=== PATIENT | female | born 1940 | race Caucasian/White ===

== ENCOUNTER 2017-02-01 12:14 | Emergency (ER) | payer OTHER, MEDICARE ==
[2017-02-01 12:23] VITALS: TEMP 97.9
[2017-02-01] MEDS ORDERED: OXYCODONE/APAP 5/325 TAB ONE (13:15)
[2017-02-01] MEDS ORDERED: OXYCODONE/APAP 5/325 TAB PO ONE (13:22)
--- NOTE | 2017-02-01 13:41 | EDPHY ---
H & P Stated Complaint: Fell Monday,hit agianst washing machine;here to get checked out;L rib pain Time Seen by Provider: 02/01/17 12:29 HPI/ROS: CHIEF COMPLAINT: Rib pain HISTORY OF PRESENT ILLNESS: 76-year-old female presents emergency department complaining of posterior left-sided rib pain that is not improving. Patient tripped and fell and hit her left side on the washer and dryer in her laundry room. No head strike, no neck pain, no loss of consciousness. Patient reports the pain continues, is worse with movement, worse with a deep breath. Patient denies fevers, no cough. She reports the pain is not worsening though not improving. She denies abdominal pain, no difficulty urinating or hematuria. REVIEW OF SYSTEMS: A comprehensive 10 point review of systems is otherwise negative aside from elements mentioned in the history of present illness. Source: Patient Exam Limitations: No limitations - Personal History Current Tetanus Diphtheria and Acellular Pertussis (TDAP): Unsure Tetanus Vaccine Date: 2004 - Medical/Surgical History Hx Asthma: No Hx Chronic Respiratory Disease: No Hx Diabetes: No Hx Cardiac Disease: No Hx Renal Disease: No Hx Cirrhosis: No Hx Alcoholism: No Hx HIV/AIDS: No Hx Splenectomy or Spleen Trauma: No Other PMH: CHOLECSYTECTOMY, APPY, C SECTION X 3, FRACTURE T 7, and 11 OR 12, FIBROMYALGIA, OSTEOPOROSIS,HTN, parkinsons. chronic pain - Social History Smoking Status: Former smoker - Physical Exam Exam: Physical Exam Gen: Alert and Oriented, NAD HEENT: PERRL, moist mucous membranes NECK: no meningismus CV: regular rate and systolic murmur PULM: CTAB, no wheezes ABDOMEN: soft, non tender to palpation, BS present BACK: Left sided pin point posterior chest wall ttp. No swelling or ecchymosis. No CVA tenderness NEURO: Neurologically grossly intact EXTREMITIES: normal appearing SKIN: no rash or break in skin on exposed skin PSYCH: answers questions appropriately. Constitutional: Initial Vital Signs Temperature (C) 36.6 C 02/01/17 12:15 Heart Rate 76 02/01/17 12:15 Respiratory Rate 20 02/01/17 12:15 Blood Pressure 190/108 H 02/01/17 12:15 O2 Sat (%) 94 02/01/17 12:15 O2 Delivery Mode Nasal Cannula O2 (L/minute) 5 Allergies/Adverse Reactions: NSAIDS (Non-Steroidal Anti-Inflamma Allergy (Severe, Verified 02/01/17 12:15) Other-Enter Comments duloxetine HCl [From Cymbalta] Allergy (Mild, Verified 02/01/17 12:15) muscle weakness pregabalin [From Lyrica] Allergy (Mild, Verified 02/01/17 12:15) muscle weakness codeine [Codeine] Allergy (Verified 02/01/17 12:15) pseudoephedrine HCl [From Sudafed] Allergy (Verified 02/01/17 12:15) statins Allergy (Mild, Uncoded 01/21/16 12:43) muscle weakness Home Medications: Medication Instructions Recorded Carbidopa/Levodopa 25/100Mg 2 tab PO QID 08/03/14 [Sinemet 25/100 MG (*)] Lisinopril [Zestril 10 mg (*)] 10 mg PO DAILY 08/03/14 buPROPion XL [Wellbutrin 150mg XL] 300 mg PO Q2D 08/03/14 oxyCODONE CR [Oxycontin] 20 mg PO BID 08/03/14 oxyCODONE IR [Oxycodone Ir (*)] 10 - 20 mg PO Q6 PRN 08/03/14 Medical Decision Making - Diagnostics Imaging Results: Imaging Impressions Ribs w/Chest X-Ray 02/01/17 12:58 Impression: 1. No acute fractures seen associated with the left ribs. There is suggestion of the old healed fracture posterior lateral left sixth rib. 2. No active cardiopulmonary disease seen. Imaging: Discussed imaging studies w/ call center recruiter Radiologist ED Course/Re-evaluation: 76-year-old female presents with left posterior rib pain after a mechanical trip and fall onto her washer and dryer at home 3 days ago. Rib series with PA chest shows no evidence of rib fracture, no pneumothorax. Patient is discharged with a incentive spirometer, she is instructed on how to use this prior to discharge.. She is given a Percocet in the emergency department. Patient has oxycodone from her airbrush painter at home. I have recommended ice or heat whichever feels better, oxycodone as prescribed by her doctor. She is given strict return precautions for any infectious symptoms, fevers, cough, new symptoms or concerns. Differential Diagnosis: Diagnosis considered but not limited to rib fracture, chest wall contusion, pneumothorax - Data Points Medications Given: Discontinued Medications Oxycodone/Acetaminophen (Percocet 5/325) 1 tab PO EDNOW ONE Stop: 02/01/17 13:23 Last Admin: 02/01/17 13:23 Dose: 1 tab Departure - Departure Disposition: Home, Routine, Self-Care Clinical Impression: Contusion, chest wall Qualifiers: Encounter type: initial encounter Laterality: left Qualified Code(s): S20.212A - Contusion of left front wall of thorax, initial encounter Condition: Good Instructions: How to Use an Incentive Spirometer (ED), Rib Fracture (ED), Contusion in Adults (ED) Additional Instructions: Ice or heat to your sore area, take your pain medication as prescribed by your primary care doctor. Use your incentive spirometer 10 times an hour while awake. Return to the emergency department for any fevers, cough, new symptoms or concerns. Follow up with your primary care doctor next week for re- evaluation. Referrals: Katheryn Johns MD [[facility] [place] [facility] [place]] - As per Instructions
[2017-02-01 14:23] VITALS: BP 163/98; PULSE 69; RESP 18; O2SAT 99
== END 2017-02-01 14:31 | disposition home or self-care (01) ==
DX: S20.212A Contusion of left front wall of thorax, initial encounter (principal); Z87.891 Personal history of nicotine dependence; W01.198A Fall on same level from slipping, tripping and stumbling with subsequent striking against other object, initial encounter; Y92.89 Other specified places as the place of occurrence of the external cause

== ENCOUNTER → 2017-04-27 | Outpatient (CLI) | payer OTHER, MEDICARE | LOC: BMCIMAGING 15:11 | PROVIDERS: ATTEND Podiatrist Foot & Ankle Surgery | DX: M81.0 Age-related osteoporosis without current pathological fracture (principal) ==

== ENCOUNTER 2018-03-04 18:10 | Inpatient (IN) | payer OTHER, MEDICARE ==
--- NOTE | 2018-03-04 18:27 | EDPHY ---
H & P Stated Complaint: fall, L hip pain - Personal History Current Tetanus/Diphtheria Vaccine: Unsure Current Tetanus Diphtheria and Acellular Pertussis (TDAP): Unsure Tetanus Vaccine Date: 2004 - Medical/Surgical History Hx Asthma: No Hx Chronic Respiratory Disease: No Hx Diabetes: No Hx Cardiac Disease: No Hx Renal Disease: No Hx Cirrhosis: No Hx Alcoholism: No Hx HIV/AIDS: No Hx Splenectomy or Spleen Trauma: No Other PMH: CHOLECSYTECTOMY, APPY, C SECTION X 3, FRACTURE T 7, and 11 OR 12, FIBROMYALGIA, OSTEOPOROSIS,HTN, parkinsons. chronic pain - Social History Smoking Status: Former smoker Time Seen by Provider: 03/04/18 18:24 HPI/ROS: CHIEF COMPLAINT: Left hip pain, right head injury post mechanical fall HISTORY OF PRESENT ILLNESS: 77-year-old female history of Parkinson's disease, no anticoagulant use history, history of chronic gait instability, chronically walks with a walker, arrives from [facility] via ambulance. She states that she got up from the dinner table without her walker and sustained a mechanical fall impacting the right side of her head and the left hip. No loss of consciousness. She is able to bear weight albeit with pain to the left hip and buttock area. This was a mechanical incident, not a syncopal episode. She has full recollection of all events. She denies: Nausea , vomiting, headache, midline C-spine pain, peripheral paresthesia, weakness, numbness, lumbar thoracic pain, straddle injury, syncopal episode PRIMARY CARE PROVIDER: Dr. Annabel Sampson REVIEW OF SYSTEMS: A ten point review of systems was performed and is negative with the exception of the items mentioned in the HPI PAST MEDICAL/SURGICAL HISTORY: no anticoagulant use, Parkinson's disease. Chronic gait instability secondary to Parkinson's disease, walks with a walker. Cholecystectomy. Appendectomy. Osteoporosis. Fibromyalgia. Chronic tremor SOCIAL HISTORY: denies alcohol use at time of incident. Lives at [facility] PHYSICAL EXAM 1) GENERAL: Well-developed, well-nourished, alert and oriented. Appears to be in no acute distress. Answering questions appropriately. Tremor noted. GCS 15. 2) HEAD: Normocephalic, small hematoma to the right frontal region. No ecchymosis. 3) HEENT: Pupils equal, round, reactive to light bilaterally. Negative Horners. Nasopharynx, oropharynx, clear. No deformity or angulation of nose. No septal hematoma. No rhinorrhea. No oral trauma. Ears bilaterally with normal tympanic membranes. No hemotympanum. No fluid or blood in the external auditory canal. No raccoon eyes. No Sanches sign. Teeth are normally aligned with no gross malocclusion, TMJ bilaterally nontender, facial bones nontender including the zygomatic arch, maxilla mandible. 4) NECK: No cervical collar is on. Posterior cervical spine is nontender, no stepoff, no effusion. Full range of motion which does not elicit any midline cervical spine pain, no posterior midline tenderness, no step-off. 5) LUNGS: Clear to auscultation bilaterally, no wheezes, no rhonchi, no retractions. No obvious signs of trauma. No chest wall pain. No flaring, no grunting. Moving symmetrically. No crepitus. 6) HEART: [Regular rate and rhythm, 7) ABDOMEN: No guarding, no rebound, no focal tenderness, no peritoneal signs, no signs of trauma, no ecchymosis 8) MUSCULOSKELETAL: Left lower extremity: No shortening no malrotation. Tender to palpation left greater trochanteric region left posterior buttock. No visible trauma such as ecchymosis, abrasion, erythema. No crepitus. Distal DP PT pulses present and brisk. Remainder of femur, knee, tibia fibula foot and ankle are nontender. Right lower extremity: Nontender no trauma no hip pain. No acetabular pain. Upper extremities unremarkable, moving upper extremities with no focal areas of discomfort. 9) BACK: No midline vertebral tenderness, no fluctuance, no step-off, no obvious trauma, no visual or palpable abnormality. 10) SKIN: No laceration. No abrasion DIFFERENTIAL DIAGNOSIS: Not necessarily in any particular order, my differential diagnosis includes, but is not limited to, concussion, skull fracture, intraparenchymal contusion, subarachnoid, subdural and epidural hematoma. The patient understands that this diagnosis is provisional and can never be 100% accurate. (Braydon,Jena Cline) Constitutional: Initial Vital Signs Temperature (C) 36.7 C 03/04/18 18:19 Heart Rate 68 03/04/18 18:19 Respiratory Rate 18 03/04/18 18:19 Blood Pressure 143/92 H 03/04/18 18:19 O2 Sat (%) 84 L 03/04/18 18:19 O2 Delivery Mode Room Air O2 (L/minute) 95 Allergies/Adverse Reactions: NSAIDS (Non-Steroidal Anti-Inflamma Allergy (Severe, Unverified 03/04/18 18:19) Other-Enter Comments duloxetine HCl [From Cymbalta] Allergy (Mild, Verified 03/04/18 18:19) muscle weakness pregabalin [From Lyrica] Allergy (Mild, Verified 03/04/18 18:19) muscle weakness codeine [Codeine] Allergy (Verified 03/04/18 18:19) pseudoephedrine HCl [From Sudafed] Allergy (Verified 03/04/18 18:19) statins Allergy (Mild, Uncoded 01/21/16 12:43) muscle weakness Home Medications: Medication Instructions Recorded Acetaminophen [Tylenol ES 500 mg 500 - 1,000 mg PO Q4 PRN 03/04/18 (*)] Carbidopa/Levodopa 1.5 each PO QID 03/04/18 [Carbidopa-Levodopa 25-100 Tab] Citalopram Hydrobromide 10 mg PO DAILY 03/04/18 [Citalopram HBr] Donepezil HCl [Aricept 5 MG (*)] 10 mg PO HS 03/04/18 Melatonin [Melatonin 5 mg] 5 mg PO HS PRN 03/04/18 Ondansetron Odt [Zofran Odt 4 mg 4 mg PO TID PRN 03/04/18 (*)] Oxybutynin Chloride [Oxybutynin 5 mg PO DAILY 03/04/18 Chloride Er] Ranitidine HCl [Zantac] 150 mg PO HS 03/04/18 Urea/Alpha Hydroxy Acids 1 julio TP DAILY 03/04/18 [ATRAC-TAIN CREAM] buPROPion XL [Wellbutrin Xl] 300 mg PO DAILY 03/04/18 guaiFENesin [Mucinex 600 MG (*)] 600 mg PO Q12 PRN 03/04/18 oxyCODONE CR [Oxycontin] 20 mg PO BID 03/04/18 oxyCODONE IR [Oxycodone Ir (*)] 10 mg PO Q4 PRN 03/04/18 Medical Decision Making - Diagnostics Imaging Results: Imaging Impressions Head CT 03/04/18 18:23 Impression: Atrophy and white matter disease, without acute abnormality. Results called to Yifan Bryson PA-C, at 7:00 PM at the time of the interpretation. Hip X-Ray 03/04/18 18:23 Impression: Negative radiographs of the left hip. Pelvis CT 03/04/18 18:46 Impression: 1. Negative for acute left hip or proximal femoral fracture. 2. Diffuse underlying osteopenia. 3. Healed inferior pubic ramus fracture on the right. 4. L5-S1 degenerative disk disease. 5. Atherosclerosis. Results called to Yifan Bryson PA-C at 7:15 p.m. Images reviewed myself (Jena Bryson) ED Course/Re-evaluation: The patient was evaluated and managed by the physician's pharmacy affairs assistant. My cosignature indicates that I reviewed the chart and I agree with the findings and plan of care as documented. I am the secondary supervising physician. ( Kay Clark) 6:27 p.m.: Head CT ordered in this patient for trauma for the following indication: Greater than 65 years old. Care of patient under supervision of secondary supervising physician Dr Clark . 7:15 p.m.: All the patient's imaging studies are negative for posttraumatic sequelae. Plan will be test ambulation with walker. 7:45 p.m.: Re-evaluation after patient attempted to sit up however she was unable to do so secondary to bilateral hip pain. She requests analgesia. History of chronic opiate dependence. She will be given IV medication re- evaluated. She would like to be discharged home 8:22 p.m.: Re-evaluation after patient given IV morphine. She is in a significant amount of pain. We attempted to sit her up and she is unable to do so secondary to bilateral hip pain. I re-examined her there are no visible or palpable abnormalities. No midline lumbar pain. I do not think this patient is an appropriate candidate for discharge home as I, her son and the patient all agree that she is unable to care for her self at this time 8:23 p.m.: Consultation with Dr. Marialuisa Paul who will admit patient (Jena Bryson) - Data Points Laboratory Results: Laboratory Results 03/04/18 19:58 05/20/18 19:58 03/04/18 03/04/18 19:58 19:58 WBC 11.77 10^3/uL H 10^3/uL (3.80-9.50) RBC 4.77 10^6/uL 10^6/uL (4.18-5.33) Hgb 14.4 g/dL g/dL (12.6-16.3) Hct 44.0 % % (38.0-47.0) MCV 92.2 fL fL (81.5-99.8) MCH 30.2 pg pg (27.9-34.1) MCHC 32.7 g/dL g/dL (32.4-36.7) RDW 13.4 % % (11.5-15.2) Plt Count 177 10^3/uL 10^3/uL (150-400) MPV 10.2 fL fL (8.7-11.7) Neut % (Auto) 71.9 % % (39.3-74.2) Lymph % (Auto) 19.5 % % (15.0-45.0) [place] % (Auto) 6.5 % % (4.5-13.0) Eos % (Auto) 1.3 % % (0.6-7.6) Baso % (Auto) 0.3 % % (0.3-1.7) Nucleat RBC Rel Count 0.0 % % (0.0-0.2) Absolute Neuts (auto) 8.48 10^3/uL H 10^3/uL (1.70-6.50) Absolute Lymphs (auto) 2.29 10^3/uL 10^3/uL (1.00-3.00) Absolute Monos (auto) 0.76 10^3/uL 10^3/uL (0.30-0.80) Absolute Eos (auto) 0.15 10^3/uL 10^3/uL (0.03-0.40) Absolute Basos (auto) 0.03 10^3/uL 10^3/uL (0.02-0.10) Absolute Nucleated RBC 0.00 10^3/uL 10^3/uL (0-0.01) Immature Gran % 0.5 % % (0.0-1.1) Immature Gran # 0.06 10^3/uL 10^3/uL (0.00-0.10) Sodium 139 mEq/L mEq/L (135-145) Potassium 5.0 mEq/L mEq/L (3.3-5.0) Chloride 103 mEq/L mEq/L (97-110) Carbon Dioxide 26 mEq/l mEq/l (22-31) Anion Gap 10 mEq/L mEq/L (8-16) BUN 25 mg/dL H mg/dL (7-23) Creatinine 1.0 mg/dL mg/dL (0.6-1.0) Estimated GFR 54 Glucose 78 mg/dL mg/dL (70-100) Calcium 8.7 mg/dL mg/dL (8.5-10.4) Medications Given: Discontinued Medications Cyclobenzaprine HCl (Flexeril) 10 mg PO EDNOW ONE Stop: 03/04/18 20:34 Last Admin: 03/04/18 20:54 Dose: 10 mg Fentanyl (Sublimaze) 50 mcg IVP EDNOW ONE Stop: 03/04/18 21:21 Last Admin: 03/04/18 21:24 Dose: 50 mcg Sodium Chloride (Ns) 500 mls @ 0 mls/hr IV ONCE ONE PRN Reason: Wide Open Stop: 03/04/18 20:33 Last Admin: 03/04/18 20:55 Dose: 500 mls Morphine Sulfate (Morphine) 4 mg IVP EDNOW ONE Stop: 03/04/18 19:49 Last Admin: 03/04/18 20:02 Dose: 4 mg Departure - Departure Disposition: [facility] Inpatient Acute Clinical Impression: Intractable hip pain, History of Parkinson's disease Condition: Fair
[2018-03-04 20:31] LABS: PLATELET COUNT 177 10^3/uL (150-400)
[2018-03-04] MEDS ORDERED: NS 500 ML IV ONE (20:32)
[2018-03-04] MEDS ORDERED: CYCLOBENZAPRINE 10 MG TAB PO ONE (20:33)
[2018-03-04] MEDS ORDERED: fentaNYL 100 MCG/2 ML INJ IVP ONE (21:20)
[2018-03-04] MEDS ORDERED: fentaNYL 100 MCG/2 ML INJ ONE (21:21)
[2018-03-04] MEDS ORDERED: ONDANSETRON 4 MG/2 ML VIAL IVP PRN (22:05)
[2018-03-04] MEDS ORDERED: ONDANSETRON DISINTEGRATING 4 MG TAB PO PRN ×2 (22:05→22:06)
[2018-03-04] MEDS ORDERED: ACETAMINOPHEN 325 MG TAB PO PRN (22:05)
[2018-03-04] MEDS ORDERED: guaiFENesin 600 MG TAB.ER PO PRN (22:06)
[2018-03-04] MEDS ORDERED: ACETAMINOPHEN 500 MG TAB PO PRN (22:06)
[2018-03-04] MEDS ORDERED: fentaNYL 100 MCG/2 ML INJ IVP PRN (22:08)
--- NOTE | 2018-03-04 22:30 | GHP ---
[f rep st] HISTORY AND PHYSICAL DATE OF ADMISSION: 03/04/2018 CHIEF COMPLAINT: Fall. HISTORY OF PRESENT ILLNESS: This is a 77-year-old female with a history of Parkinson's disease. Her balance has been off since her diagnosis, and she has fallen multiple times in the past. Today she was walking down a walkway and fell onto her left side and also on her right side. She believes that this was due to poor balance. This was not a syncopal episode. She developed pain in the left hip and came here for evaluation. She does not have any fractures but had continued pain, is unable to a mbulate, and is being admitted to the hospital. She does have chronic back pain and takes oxycodone and has been taking oxycodone chronically for several years. REVIEW OF SYSTEMS: A 10-point review of systems was obtained and other than stated above was negativ e. PAST MEDICAL HISTORY: 1. Parkinson's. 2. Chronic back pain. SOCIAL HISTORY: Quit smoking a long time ago. Lives with her in assisted living or possibly [facility]cf facility. FAMILY HISTORY: No history of Parkinson's. PHYSICAL EXAMINATION: VITAL SIGNS: Afebrile, blood pressure is 146/66, heart rate 63, O2 saturation 91% on 2 L. GENERAL: The patient is well developed, no apparent distress. HEENT: Nonicteric scle willam. Extraocular movements intact. Moist mucous membranes. NECK: Supple. No thyromegaly. LUNGS: Good effort. Clear to auscultation bilaterally. CARDIOVASCULAR: Regular rate and rhythm. No mur murs, rubs, or gallops. ABDOMEN: Positive bowel sounds. Soft, nontender, nondistended. No hepatos plenomegaly. EXTREMITIES: No clubbing, cyanosis, or edema. SKIN: Without rash, warm, intact. ELOY ROLOGIC: Alert and oriented. She does have some choreic movements. EXTREMITIES: No significant te nderness in the hip area. LABORATORY: CBC is normal. Chemistries are normal. CT scan of the pelvis does not show any fractur e. Head CT is also negative. ASSESSMENT: This is a 77-year-old female who is suffering from pain due to fall probably due to Park inson's but is unable to ambulate. PLAN: 1. Patient will be admitted under observation status. We will continue with pain medications. She did receive some fentanyl in the emergency department. That seems to work better for her, and we can continue that. We will also continue oxycodone. 2. Parkinson's. We will continue medications. CODE STATUS: The patient is DNR. /[id number]/MODL
[2018-03-04] MEDS: MELATONIN 3 MG TAB PO SCH (22:48)
[2018-03-05] MEDS: oxyCODONE IR 5 MG TAB PO PRN ×4 (01:37→20:07)
[2018-03-05] MEDS: CARBIDOPA/LEVODOPA 25 MG/100 MG TAB PO SCH ×4 (06:00→20:08)
[2018-03-05] MEDS: FAMOTIDINE 20 MG TAB PO SCH ×2 (07:31→20:08)
[2018-03-05] MEDS: buPROPion XL 150 MG TAB PO SCH (07:31)
[2018-03-05] MEDS: OXYBUTYNIN 5 MG EXT REL TAB PO SCH (07:31)
[2018-03-05] MEDS: CITALOPRAM 20 MG TAB PO SCH (07:32)
[2018-03-05] MEDS: UREA TP SCH (07:40)
[2018-03-05] MEDS: ALPHA HYDROXY ACIDS TP SCH (07:40)
--- NOTE | 2018-03-05 12:38 | ASMTCASEMG ---
Living Arrangements What is your living Answers: Alone arrangement? Who do you live with? Type Of Residence What kind of residence do Answers: House you live in? Discharge Plan Comments Coordination Status Comments Notes: Pt is a 77 y/o female admitted for intractable back pain. Therapies have been ordered and awaiting recommendations. Needs are TBD at this time. CM to follow. Plan: TBD Date Signed: 03/05/2018 12:37 PM Electronically Signed By:GEOFFREY Heller
--- NOTE | 2018-03-05 14:25 | HOSPPROG ---
Hospitalist Progress Note Assessment/Plan: Patient is a 77-year-old female with a history of Parkinson's disease. She has been having ongoing difficulty with balance and has fallen multiple times. She fell on her left side and also on her right side prior to admission she believes this is due to poor balance. This was not a syncopal episode. She has chronic back pain and takes oxycodone and pain medications chronically. Today is my 1st encounter with the patient. Chart reviewed. * gait instability with frequent falling -PT is recommending home care 24 hours or SNF -spoke with her son, patient lives at [facility] and has access to more increased care, he will talk with them to check on her daily and in evenings -cause of falling are multifactorial- she has Parkinson's, on narcotics chronically *left hip pain -reviewed hip xray and CT scan- no fx identified -avoid opioids since she is on them and may be a factor in her falling, trial of ibuprofen, Voltaren cream, scheduled Tylenol, ice tid *Parkinson's -resumed home meds * chronic pain on continuous, chronic opiates -resumed home meds -spoke with her son that she may benefit from lower doses of the narcotics due to having Parkinson's , increase risk of falling *Underweight w a BMI of 19 *Plan: will require another midnight stay, patient having significant pain in her left hip area that isn't controlled. Called and updated her son, Yifan, about plan of care. His # is [phone]. He is going to call [facility] to increase her care. Subjective: Suki is c/o significant pain in her left hip, left low back area while lying down. Objective: Vital Signs Temp Pulse Resp BP Pulse Ox 36.7 C 64 18 191/95 H 92 03/05/18 07:30 03/05/18 07:30 03/05/18 07:30 03/05/18 07:30 03/05/18 07:30 03/04/18 03/05/18 03/06/18 05:59 05:59 05:59 Intake Total 800 Output Total 150 Balance 800 -150 - Physical Exam Constitutional: chronically ill appearing, uncomfortable, No not in pain Eyes: PERRL Ears, Nose, Mouth, Throat: hearing normal Cardiovascular: regular rate and rhythym Respiratory: no respiratory distress Skin: warm Musculoskeletal: muscular tenderness (left hip and left low back area), generalized weakness Neurologic: AAOx3 Psychiatric: interacting appropriately ICD10 Worksheet Patient Problems: Problems Problem Status Onset History of Parkinson's disease Acute Compression fracture Acute Headache Acute Intracerebral bleed Acute
[2018-03-05] MEDS ORDERED: IBUPROFEN 200 MG TAB PO PRN (14:51)
[2018-03-05] MEDS ORDERED: IBUPROFEN 200 MG TAB PO ONE (14:51)
[2018-03-05] MEDS: DICLOFENAC SODIUM 1% 100 GM GEL TP SCH ×2 (15:45→20:10)
[2018-03-05] MEDS ORDERED: METHOCARBAMOL 750 MG TAB PO PRN (16:16)
[2018-03-05] MEDS: ACETAMINOPHEN 500 MG TAB PO SCH ×2 (16:41→21:22)
--- NOTE | 2018-03-05 19:52 | PDMN ---
Medical Necessity Medical necessity: change to IP; los>2mn for ongoing significant uncontrolled L hip pain, r/t fall; requires trial of non-narcotic pain med, ice, and voltaren cream, PT/OT; comorbid Parkinson's w/gait instability, and frequent falls; per order and progress note 03/05/18
[2018-03-05] MEDS ORDERED: DONEPEZIL HCL 5 MG TAB PO SCH (21:00)
[2018-03-05] MEDS: MELATONIN 3 MG TAB PO SCH (21:22)
[2018-03-06] MEDS: CARBIDOPA/LEVODOPA 25 MG/100 MG TAB PO SCH ×2 (06:10→12:12)
[2018-03-06] MEDS: DICLOFENAC SODIUM 1% 100 GM GEL TP SCH ×2 (06:14→12:15)
[2018-03-06 07:22] VITALS: BP 166/90
[2018-03-06] MEDS: ACETAMINOPHEN 500 MG TAB PO SCH (09:59)
[2018-03-06] MEDS: buPROPion XL 150 MG TAB PO SCH (10:00)
[2018-03-06] MEDS: CITALOPRAM 20 MG TAB PO SCH (10:00)
[2018-03-06] MEDS: FAMOTIDINE 20 MG TAB PO SCH (10:00)
[2018-03-06] MEDS: OXYBUTYNIN 5 MG EXT REL TAB PO SCH (10:00)
[2018-03-06] MEDS: UREA TP SCH (10:04)
[2018-03-06] MEDS: ALPHA HYDROXY ACIDS TP SCH (10:04)
--- NOTE | 2018-03-06 10:30 | HOSPPROG ---
Hospitalist Progress Note Assessment/Plan: Patient is a 77-year-old female with a history of Parkinson's disease. She has been having ongoing difficulty with balance and has fallen multiple times. She fell on her left side and also on her right side prior to admission she believes this is due to poor balance. This was not a syncopal episode. She has chronic back pain and takes oxycodone and pain medications chronically. * gait instability with frequent falling -PT is recommending home care 24 hours or SNF -cause of falling are multifactorial- she has Parkinson's, on narcotics chronically -son, Yifan, is very supportive, would like her home and will be sure she has f/ u care *left hip pain -reviewed hip xray and CT scan- no fx identified -avoid opioids since she is on them and may be a factor in her falling, trial of ibuprofen, Voltaren cream, scheduled Tylenol, ice tid *Parkinson's -resumed home meds * chronic pain on continuous, chronic opiates -resumed home meds -spoke with her son that she may benefit from lower doses of the narcotics due to having Parkinson's , increase risk of falling *Underweight w a BMI of 19 *Plan: dc home w home care Subjective: Suki is feeling better today, wants to go home. Objective: Vital Signs Temp Pulse Resp BP Pulse Ox 36.9 C 53 L 16 166/90 H 95 03/06/18 07:20 03/06/18 07:20 03/06/18 07:20 03/06/18 07:20 03/06/18 07:20 03/05/18 03/06/18 03/07/18 05:59 05:59 05:59 Intake Total 800 150 Output Total 150 Balance 800 0 - Physical Exam Constitutional: uncomfortable, other (thin) Eyes: PERRL, other (wearing glasses) Ears, Nose, Mouth, Throat: hearing normal Cardiovascular: regular rate and rhythym Respiratory: no respiratory distress Skin: warm Musculoskeletal: generalized weakness Neurologic: AAOx3 Psychiatric: interacting appropriately ICD10 Worksheet Patient Problems: Problems Problem Status Onset History of Parkinson's disease Acute Compression fracture Acute Headache Acute Intracerebral bleed Acute
--- NOTE | 2018-03-06 10:38 | PDIAF ---
- Diagnosis Diagnosis: gait instability, left hip pain, parkinsons Code Status: Do Not Resuscitate - Medication Management Discharge Medications: Medications to Continue on Transfer Carbidopa/Levodopa [Carbidopa-Levodopa 25-100 Tab] 1.5 each PO QID 03/04/18 [ Last Taken Unknown] Citalopram Hydrobromide [Citalopram HBr] 10 mg PO DAILY 03/04/18 [Last Taken Unknown] Donepezil HCl [Aricept 5 MG (*)] 10 mg PO HS 03/04/18 [Last Taken Unknown] Melatonin [Melatonin 5 mg] 5 mg PO HS PRN 03/04/18 [Last Taken Unknown] Ondansetron Odt [Zofran Odt 4 mg (*)] 4 mg PO TID PRN 03/04/18 [Last Taken Unknown] Oxybutynin Chloride [OXYBUTYNIN CHLORIDE ER] 5 mg PO DAILY 03/04/18 [Last Taken Unknown] Ranitidine HCl [Zantac] 150 mg PO HS 03/04/18 [Last Taken Unknown] Urea/Alpha Hydroxy Acids [ATRAC-TAIN CREAM] 1 julio TP DAILY 03/04/18 [Last Taken Unknown] buPROPion XL [Wellbutrin 150mg XL] 300 mg PO DAILY 03/04/18 [Last Taken Unknown] guaiFENesin [Mucinex 600 MG (*)] 600 mg PO Q12 PRN 03/04/18 [Last Taken Unknown] oxyCODONE CR [Oxycontin] 20 mg PO BID 03/04/18 [Last Taken Unknown] oxyCODONE IR [Oxycodone Ir (*)] 10 mg PO Q4 PRN 03/04/18 [Last Taken Unknown] Acetaminophen [Tylenol ES 500 mg (*)] 1,000 mg PO TID tab 03/06/18 [Last Taken Unknown] Diclofenac Sodium 1% [Voltaren Gel (*)] 4 gm TP QID #1 gel 03/06/18 [Last Taken Unknown] Discharge Medications: Refer to the Discharge Home Medication list for PRN reason. - Orders Services needed: Home Care, Registered Nurse, Physical Therapy, Occupational Therapy Home Care Face to Face: I certify that this patient was under my care and that I had the required [id number]-[id number] encounter meeting the encounter requirements on the discharge day. My findings support the fact that the patient is homebound as defined in Home Care Face to Face Continued: [facility] Chapter 7 Medicare Benefits Manual 30.1.1 , The condition of the patient is such that there exists a normal inability to leave home and consequently, leaving home would require a considerable and taxing effort. Isolation Type: None Diet Recommendation: no restrictions on diet Diet Texture: Regular Texture Diet Additional Instructions: home care to evaluate medications talk with Suki's PCP about weaning off long acting pain medications take the Tylenol scheduled to see if this will help control the pain A script for Voltaren cream has been left in chart, I'm not sure your insurance will cover - Follow Up Care Current Providers and Referrals: Patient,NotPresent [Unknown] - As per Instructions
--- NOTE | 2018-03-06 10:47 | ASMTLACE ---
LACE Length of stay for Answers: 2 days current admission Acuity / Level of Answers: Yes Care: Did the patient have an inpatient admission? Comorbidities - select Answers: History of falls all that apply Opioid dependence / Chronic pain Other Notes: Parkinson's disease; HT N # of Emergency department Answers: 1-2 visits in the last 6 months Score: 14 Date Signed: 03/06/2018 10:46 AM Electronically Signed By:GEOFFREY Heller
--- NOTE | 2018-03-06 11:18 | PDHOMEO2F ---
Home Oxygen Face to Face Home Orders: I certify that a physician or a nurse practitioner or physician's server assistant has had a hptp-lp-unfa encounter with this patient on the date of this order due to the diagnosis listed, which relates to the primary reason the patient requires home oxygen. Alternative treatments have been tried, or considered, and deemed ineffective. It is anticipated that supplemental oxygen will result in improvement with treatment. Home oxygen qualifying diagnosis: suspect COPD noted on imaging SpO2 on room air (%): 84 Frequency of home oxygen needed: continuous Home oxygen liters per minute: 2 Home oxygen delivery device: nasal cannula Concentrator: Yes E-tanks for mobility and back up: Yes If ordering portable O2, is the patient mobile in the home?: Yes I certify that, based on these findings, the home oxygen is medically necessary for this patient for the following length of time. Length of time home oxygen needed: 99 years
--- NOTE | 2018-03-06 12:33 | GDS ---
[f rep st] DISCHARGE SUMMARY DISCHARGE DIAGNOSES: 1. Gait instability with frequent falls. 2. Left hip pain. 3. Parkinson's. 4. Chronic pain, on continuous chronic opiates. 5. Underweight with a body mass index of 19. 6. Likely chronic obstructive pulmonary disease noted on previous imaging. HISTORY OF PRESENT ILLNESS: Briefly, the patient is a 77-year-old female with a history of Parkinson disease. She had been having some ongoing difficulty with balance and has fallen multiple times. She fell on her left side and also on her right side prior to the admission. She believes this is due to poor balance. This was not a syncopal episode. She has chronic back pain and takes long-acting oxycodone and p.r.n. medications frequently. She will be discharged home with 24-hour care. She has a son who is very involved with her care. HOSPITAL COURSE: 1. Gait instability with frequent falling. She will be getting home care. I suspect this is multifactorial. She has Parkinson's, on narcotics chronically. Reviewed this with her son and with the patient that I am concerned of her doses of narcotics, and as she is getting older and her Parkinson's is progressing, this is a bad combination. She is going to talk to her PCP and work on slowly weaning these off. 2. Left hip pain. She had a hip x-ray and a CT scan which did not identify a fracture. She has done well with the Voltaren cream and scheduled Tylenol. 3. Parkinson's. Resumed her home medications. 4. Chronic pain, on continuous chronic opiates. I resumed her home medications at the same dose. I have asked that her son talk with her PCP in regard to try to cut these back a bit. 5. Underweight. She has a BMI of 19. 6. Likely COPD. Her oxygen levels were 84% on room air. She will be sent home with oxygen and further followup with her PCP. DISCHARGE CONDITION: Stable. Blood pressure 166/90, heart rate of 53, respiratory rate is 16, O2 sats on 2 L 95%, temperature is 36.9 Celsius. MEDICATIONS AT DISCHARGE: Please see the EMR. DISCHARGE INSTRUCTIONS: 1. To follow up with her PCP in regard to decreasing her doses of pain medications. 2. If she develops fever, chills, chest pain, or shortness of breath, return to the ER. /[id number]/MODL MTDD
[2018-03-06] MEDS: oxyCODONE IR 5 MG TAB PO PRN (14:58)
--- NOTE | 2018-03-06 15:25 | ASDISCHSUM ---
Discharge Information Plan Status:Home with Home Health Medically Cleared to Leave:03/06/2018 Discharge Date:03/06/2018 03:06 PM D/C Disposition: [facility] D/C Disposition:[id number] Projected Discharge Date:03/06/2018 11:00 AM Transportation at D/C: Discharge Delay Reason: Follow-Up Date:03/06/2018 11:00 AM Discharge Slot: Final Diagnosis: Placement Information Referral Type:*Home Health Care Services Referral ID:[id number] Provider Name:[facility] (formerly [facility]) [address] Address 2: City:[place] Selection Factors: State:[place] Patient Contact Information Contact Name:BIN Relationship:Son Address:[address] Work Phone: City:[facility] Phone: State/Zip Code:[place] [address] Email: Financial Information Financial Class:Medicare Primary Plan Desc:MEDICARE INPATIENT Primary Plan Number:[id number] Secondary Plan Desc:[employer]/MDR SUPPLEMENT Secondary Plan Number:[id number] Assessment Information LACE LACE Length of stay for Answers: 2 days current admission Acuity / Level of Answers: Yes Care: Did the patient have an inpatient admission? Comorbidities - select Answers: History of falls all that apply Opioid dependence / Chronic pain Other Notes: Parkinson's disease; HT N # of Emergency department Answers: 1-2 visits in the last 6 months Score: 14 Date Signed: 03/06/2018 10:46 AM Electronically Signed By:GEOFFREY Heller [facility] Initial CM Assessment Living Arrangements What is your living Answers: Alone arrangement? Who do you live with? Type Of Residence What kind of residence do Answers: House you live in? Discharge Plan Comments Coordination Status Comments Notes: Pt is a 77 y/o female admitted for intractable back pain. Therapies have been ordered and awaiting recommendations. Needs are TBD at this time. CM to follow. Plan: TBD Date Signed: 03/05/2018 12:37 PM Electronically Signed By:GEOFFREY Heller Case Management Discharge Plan Note Case Management Discharge Discharge Order Complete? Answers: Yes Patient to Obtain Answers: via Family Medications Transportation Arranged Answers: Family/Friends EMTALA Complete Answers: No Case Management Transport Answers: No Form Complete Faxed Final Orders Answers: Yes Agency/Facility Transfer Answers: Yes Report Printed & Faxed to Receiving Agency Family Notified Answers: Yes Discharge Comments Notes: SOPHY spoke w/ ADWOA Cornejo regarding d/c POC. Pt is being discharged today. CM met w/ pt and son, Yifan for dispo planning. Yifan reports that pt will have private duty for 12hrs during the day provided by [facility]. During the night, from 8PM-8AM Yifan has arranged for [facility] to check on her every 2 hours. Yifan would like CM to make a referral to [facility]. [facility]erral sent to [facility] and [facility] able [facility] accept. Y[facility]an will be bringing pt back [facility]. CM available for changes. Plan: [facility] private duty w/ [facility], PT, OT, RN Date Signed: 03/06/2018 10:41 AM Electronically Signed By:GEOFFREY Heller Intervention Information Intervention Type:*BEAR-Signed Date of Service:03/05/2018 10:02 AM Patient Type:Observation Staff Member:Marleni Luna Hours: Discipline: Severity: Comment:
[2018-03-07] MEDS ORDERED: FAMOTIDINE 20 MG TAB PO SCH (09:00)
== END 2018-03-06 15:06 | disposition home health service (06) | DRG 92 ==
LOC: EDUNIT# → OBSVTOIN 20:25 → UNDOADMIN 20:25 → INTOOBSV 20:25 → F3E 21:41 → UNDODISIN 03-06 15:06
PROVIDERS: ADMIT Internal Medicine; ATTEND Internal Medicine
DX: R26.89 Other abnormalities of gait and mobility (principal); Z68.1 Body mass index [BMI] 19.9 or less, adult; R29.6 Repeated falls; M25.552 Pain in left hip; G20 Parkinson's disease; W18.39XA Other fall on same level, initial encounter; F03.90 Unspecified dementia, unspecified severity, without behavioral disturbance, psychotic disturbance, mood disturbance, and anxiety; G89.29 Other chronic pain; R63.6 Underweight; J44.9 Chronic obstructive pulmonary disease, unspecified; Z87.891 Personal history of nicotine dependence
CPT/HCPCS: 96374; 97116-GP; 97161-GP; 97166-GO; 97530-GO; 97535-GO; G0378; G8978-GP-CK; G8979-GP-CJ; G8987-GO-CL; G8988-GO-CI; J2270; J3010

== ENCOUNTER 2018-08-07 21:10 | Emergency (ER) | payer OTHER, MEDICARE ==
--- NOTE | 2018-08-07 21:41 | EDPHY ---
H & P Stated Complaint: fell yesterday and states has rt sided rib discomfort Time Seen by Provider: 08/07/18 21:41 HPI/ROS: HPI CHIEF COMPLAINT: Fall, right rib pain. HISTORY OF PRESENT ILLNESS: This is a very pleasant 77-year-old female, she has Parkinson's, with abnormal Parkinson's movements, she has a fall risk, she resides at [facility] she believes she may have fallen on Monday or Monday striking her right ribs. She has right lateral rib pain. Denies chest pain shortness of breath. She does complain of nausea. No head strike. For presents by EM Aaron. Son at bedside. Upon my evaluation she appears uncomfortable. She has parkinsonian movements that her rather more pronounced this evening due to pain. Her main complaint is right lateral rib pain. Past Medical History: Parkinson's disease Past Surgical History: No recent surgery for Social History: Resides at [facility]. Denies drugs alcohol tobacco. Family History: Noncontributory ROS REVIEW OF SYSTEMS: 10 Systems were reviewed and negative with the exception of the elements mentioned in the history of present illness. Exam Constitutional triage nursing summary reviewed, vital signs reviewed, awake/ alert. Eyes normal conjunctivae and sclera, EOMI, PERRLA. HENT normal inspection, atraumatic, moist mucus membranes, no epistaxis, neck supple/ no meningismus, no raccoon eyes. Respiratory clear to auscultation bilaterally, normal breath sounds, no respiratory distress, no wheezing. Cardiovascular chest wall: Mild tender palpation over the lateral right chest wall, and right anterior chest wall. No crepitus. No ecchymosis present. No flail chest present. rate normal, regular rhythm, no murmur, no edema, distal pulses normal. Gastrointestinal soft, non-tender, no rebound, no guarding, normal bowel sounds, no distension, no pulsatile mass. Genitourinary no CVA tenderness. Musculoskeletal no midline vertebral tenderness, full range of motion, no calf swelling, no tenderness of extremities, no meningismus, good pulses, neurovascularly intact. Skin pink, warm, & dry, no rash, skin atraumatic. Neurologic awake, alert and oriented x 3, AAOx3, moves all 4 extremities equally, motor intact, sensory intact, CN II-XII intact, normal cerebellar, normal vision, normal speech. Psychiatric normal mood/affect. Heme/Lymph/Immune no lymphadenopathy. Differential Diagnosis:. Includes but is not limited to in a particular order chest wall contusion, rib fractures, rib contusion, pneumothorax, pleural effusion, hemothorax, pulmonary contusion, tension pneumothorax Medical Decision Making: Plan for this patient two view chest x-ray, IV establishment 1 mg IV Ativan for anxiety, stress, abnormal parkinsonian movements, check basic blood work, gentle IV fluids. Re-evaluate. Re-evaluation: Chest x-ray reviewed. This shows nondisplaced acute 3rd and 8th rib fracture. Right-sided. Patient re-examination at 11:12 p.m.. She is feeling much better after IV Ativan and IV fluids. Resting comfortably. Her parkinsonian movements are much improved. Chest x-ray reviewed no pneumothorax. 3rd and 8th rib fracture. Incentive spirometer provided. Patient has oxycodone at home. Return precautions discussed with patient return if worsening symptoms worsening pain, trouble breathing, fever Source: Patient - Personal History Current Tetanus/Diphtheria Vaccine: Yes Current Tetanus Diphtheria and Acellular Pertussis (TDAP): Yes Tetanus Vaccine Date: 2004 - Medical/Surgical History Hx Asthma: No Hx Chronic Respiratory Disease: No Hx Diabetes: No Hx Cardiac Disease: No Hx Renal Disease: No Hx Cirrhosis: No Hx Alcoholism: No Hx HIV/AIDS: No Hx Splenectomy or Spleen Trauma: No Other PMH: CHOLECSYTECTOMY, APPY, C SECTION X 3, FRACTURE T 7, and 11 OR 12, FIBROMYALGIA, OSTEOPOROSIS,HTN, parkinsons. chronic pain - Social History Smoking Status: Former smoker Constitutional: Initial Vital Signs Temperature (C) 36.7 C 08/07/18 21:16 Heart Rate 78 08/07/18 21:16 Respiratory Rate 18 08/07/18 21:16 Blood Pressure 143/96 H 08/07/18 21:16 O2 Sat (%) 96 08/07/18 21:16 O2 Delivery Mode Nasal Cannula O2 (L/minute) 2 Allergies/Adverse Reactions: NSAIDS (Non-Steroidal Anti-Inflamma Allergy (Severe, Unverified 08/07/18 21:19) Other-Enter Comments duloxetine HCl [From Cymbalta] Allergy (Mild, Verified 08/07/18 21:19) muscle weakness pregabalin [From Lyrica] Allergy (Mild, Verified 08/07/18 21:19) muscle weakness codeine [Codeine] Allergy (Verified 08/07/18 21:19) pseudoephedrine HCl [From Sudafed] Allergy (Verified 08/07/18 21:19) statins Allergy (Mild, Uncoded 08/07/18 21:19) muscle weakness Home Medications: Medication Instructions Recorded Carbidopa/Levodopa 1.5 each PO QID 03/04/18 [Carbidopa-Levodopa 25-100 Tab] Citalopram Hydrobromide 10 mg PO DAILY 03/04/18 [Citalopram HBr] Donepezil HCl [Aricept 5 MG (*)] 10 mg PO HS 03/04/18 Melatonin [Melatonin 5 mg] 5 mg PO HS PRN 03/04/18 Ondansetron Odt [Zofran Odt 4 mg 4 mg PO TID PRN 03/04/18 (*)] Oxybutynin Chloride [OXYBUTYNIN 5 mg PO DAILY 03/04/18 CHLORIDE ER] Ranitidine HCl [Zantac] 150 mg PO HS 03/04/18 Urea/Alpha Hydroxy Acids 1 julio TP DAILY 03/04/18 [ATRAC-TAIN CREAM] buPROPion XL [Wellbutrin 150mg XL] 300 mg PO DAILY 03/04/18 guaiFENesin [Mucinex 600 MG (*)] 600 mg PO Q12 PRN 03/04/18 oxyCODONE CR [Oxycontin] 20 mg PO BID 03/04/18 oxyCODONE IR [Oxycodone Ir (*)] 10 mg PO Q4 PRN 03/04/18 Acetaminophen [Tylenol ES 500 mg 1,000 mg PO TID tab 03/06/18 (*)] Diclofenac Sodium 1% [Voltaren Gel 4 gm TP QID #1 gel 03/06/18 (*)] Medical Decision Making - Diagnostics Imaging Results: Imaging Impressions Chest X-Ray 08/07/18 21:46 Impression: 1. Possibly acute nondisplaced right lateral third and eighth rib fractures. 2. Suspect severe osteoporosis. This patient might benefit from a DEXA scan and bone building therapeutic intervention. - Data Points Laboratory Results: Laboratory Results 08/07/18 22:15 08/07/18 22:53 10/23/18 10/23/18 10/23/18 22:53 22:15 22:15 WBC RBC Hgb Hct MCV MCH MCHC RDW Plt Count MPV Neut % (Auto) Lymph % (Auto) Lassen % (Auto) Eos % (Auto) Baso % (Auto) Nucleat RBC Rel Count Absolute Neuts (auto) Absolute Lymphs (auto) Absolute Monos (auto) Absolute Eos (auto) Absolute Basos (auto) Absolute Nucleated RBC Immature Gran % Immature Gran # PT 13.3 SEC SEC (12.0-15.0) INR 0.99 (0.83-1.16) APTT 28.1 SEC SEC (23.0-38.0) Turbidity REJ Sodium 139 mEq/L mEq/L REJ (135-145) Potassium 4.3 mEq/L mEq/L REJ (3.3-5.0) Chloride 106 mEq/L mEq/L REJ (97-110) Carbon Dioxide 25 mEq/l mEq/l REJ (22-31) Anion Gap 8 mEq/L mEq/L REJ (6-14) BUN 36 mg/dL H mg/dL REJ (7-23) Creatinine 1.1 mg/dL H mg/dL REJ (0.6-1.0) Estimated GFR 48 REJ Glucose 105 mg/dL H mg/dL REJ (70-100) Calcium 8.2 mg/dL L mg/dL REJ (8.5-10.4) Specimen Hemolysis REJ 08/07/18 22:15 WBC 12.79 10^3/uL H 10^3/uL (3.80-9.50) RBC 4.23 10^6/uL 10^6/uL (4.18-5.33) Hgb 12.8 g/dL g/dL (12.6-16.3) Hct 39.2 % % (38.0-47.0) MCV 92.7 fL fL (81.5-99.8) MCH 30.3 pg pg (27.9-34.1) MCHC 32.7 g/dL g/dL (32.4-36.7) RDW 13.8 % % (11.5-15.2) Plt Count 175 10^3/uL 10^3/uL (150-400) MPV 10.1 fL fL (8.7-11.7) Neut % (Auto) 83.2 % H % (39.3-74.2) Lymph % (Auto) 9.3 % L % (15.0-45.0) Lassen % (Auto) 6.5 % % (4.5-13.0) Eos % (Auto) 0.2 % L % (0.6-7.6) Baso % (Auto) 0.3 % % (0.3-1.7) Nucleat RBC Rel Count 0.0 % % (0.0-0.2) Absolute Neuts (auto) 10.64 10^3/uL H 10^3/uL (1.70-6.50) Absolute Lymphs (auto) 1.19 10^3/uL 10^3/uL (1.00-3.00) Absolute Monos (auto) 0.83 10^3/uL H 10^3/uL (0.30-0.80) Absolute Eos (auto) 0.03 10^3/uL 10^3/uL (0.03-0.40) Absolute Basos (auto) 0.04 10^3/uL 10^3/uL (0.02-0.10) Absolute Nucleated RBC 0.00 10^3/uL 10^3/uL (0-0.01) Immature Gran % 0.5 % % (0.0-1.1) Immature Gran # 0.06 10^3/uL 10^3/uL (0.00-0.10) PT INR APTT Turbidity Sodium Potassium Chloride Carbon Dioxide Anion Gap BUN Creatinine Estimated GFR Glucose Calcium Specimen Hemolysis Medications Given: Discontinued Medications Sodium Chloride (Ns) 1,000 mls @ 0 mls/hr IV ONCE ONE; Wide Open PRN Reason: Protocol Stop: 08/07/18 21:47 Last Admin: 08/07/18 22:13 Dose: 1,000 mls Lorazepam (Ativan Injection) 1 mg IVP EDNOW ONE Stop: 08/07/18 21:47 Last Admin: 08/07/18 22:13 Dose: 1 mg Departure - Departure Disposition: Home, Routine, Self-Care Clinical Impression: Rib contusion Qualifiers: Encounter type: initial encounter Laterality: right Qualified Code(s): S20.211A - Contusion of right front wall of thorax, initial encounter Condition: Good Instructions: Rib Fracture (ED), Rib Contusion (ED) Additional Instructions: 1.Recommend rest. 2. Incentive spirometer as prescribed. 3. Follow up PCP. 4. Return if worse. 5. Year x-ray shows that you most likely fractured her 3rd rib as well as her 8th rib. Referrals: David Miller MD [Primary Care Provider] - As per Instructions
[2018-08-07] MEDS ORDERED: NS 1,000 ML IV ONE (21:46)
[2018-08-07] MEDS ORDERED: LORazepam 2 MG/ML INJ IVP ONE (21:46)
[2018-08-07 22:28] LABS: PLATELET COUNT 175 10^3/uL (150-400)
[2018-08-07 22:38] LABS: INR 0.99 (0.83-1.16); PROTIME(PATIENT) 13.3 SEC (12.0-15.0)
[2018-08-07 23:40] VITALS: BP 159/89
== END 2018-08-07 23:40 | disposition home or self-care (01) ==
DX: S20.211A Contusion of right front wall of thorax, initial encounter (principal); G20 Parkinson's disease; W19.XXXA Unspecified fall, initial encounter; E86.9 Volume depletion, unspecified
CPT/HCPCS: 71046; 96374; 99284; J2060